=== PATIENT | female | born 2000 | race Caucasian/White ===

== ENCOUNTER 2022-01-26 16:55 | Outpatient (CLI) | payer BC, SELFPAY ==
[2022-01-26 17:15] LABS: Hematocrit 40.5 % (35.0-49.0); Hemoglobin 12.7 g/dL (12.0-15.0); Mean Corpuscular HGB Conc 31.4 g/dL (32.0-36.0); Mean Corpuscular Hemoglobin 26.1 pg (27.0-31.0); Mean Corpuscular Volume 83.2 fL (78.0-102.0); Mean Platelet Volume 9.3 fl (9.2-11.8); Platelet Count Result 450 K/mm3 (150-420); Red Blood Count 4.87 M/mm3 (4.20-5.40); Red Cell Distribution Width 14.4 % (11.6-14.4)
[2022-01-26 17:25] LABS: White Blood Count 20.6 K/mm3 (4.8-10.8)
[2022-01-26 17:42] LABS: Alanine Aminotransferase 12 U/L (14-59); Albumin Level 3.4 g/dL (3.4-5.0); Alkaline Phosphatase 103 U/L (46-116); Anion Gap 10 mmol/L (8-16); Aspartate Amino Transferase 14 U/L (15-37); Bilirubin,Total 0.3 mg/dL (0.00-1.00); Blood Urea Nitrogen 11 mg/dL (7-18); Carbon Dioxide 24 mmol/L (21-32); Chloride 103 mmol/L (98-108); Estimated Glomerular Filt Rate > 60; Glucose 79 mg/dL (70-99); Osmolality Calculated 282 mOsm/kg (285-295); Sodium 137 mmol/L (136-145); Total Protein 8.1 g/dL (6.4-8.2)
[2022-01-26 17:46] LABS: Thyroid Stimulating Hormone Reflex 1.68 u/IU/mL (0.36-3.74)
== END 2022-01-26 16:56 | disposition home or self-care (01) ==
LOC: CHSLAB 17:00
PROVIDERS: PCP Family Medicine; Visit Provider Family Medicine
DX: Z00.00 Encounter for general adult medical examination without abnormal findings (principal); E11.9 Type 2 diabetes mellitus without complications
CPT/HCPCS: 36415; 80053; 84443; 85027

== ENCOUNTER 2022-12-22 14:14 | Outpatient (CLI) | payer BC, SELFPAY ==
[2022-12-22 14:34] LABS: Hematocrit 43.1 % (35.0-49.0); Hemoglobin 13.5 g/dL (12.0-15.0); Immature Platelet Fraction Pct 1.9 % (1.0-7.0); Mean Corpuscular HGB Conc 31.3 g/dL (32.0-36.0); Mean Corpuscular Hemoglobin 25.3 pg (27.0-31.0); Mean Corpuscular Volume 80.9 fL (78.0-102.0); Mean Platelet Volume 9.1 fl (9.2-11.8); Platelet Count Result 532 K/mm3 (150-420); Red Blood Count 5.33 M/mm3 (4.20-5.40); Red Cell Distribution Width 14.7 % (11.6-14.4); White Blood Count 17.9 K/mm3 (4.8-10.8)
[2022-12-22 15:07] LABS: Alanine Aminotransferase 31 U/L (14-59); Albumin Level 3.6 g/dL (3.4-5.0); Alkaline Phosphatase 113 U/L (46-116); Anion Gap 12 mmol/L (8-16); Aspartate Amino Transferase 14 U/L (15-37); Bilirubin,Total 0.3 mg/dL (0.00-1.00); Blood Urea Nitrogen 7 mg/dL (7-18); Carbon Dioxide 27 mmol/L (21-32); Chloride 103 mmol/L (98-108); Cholesterol 174 mg/dL (0-200); Estimated Glomerular Filt Rate > 60; Glucose 86 mg/dL (70-99); HDL Direct 51 mg/dL (40-60); LDL Cholesterol Calculated 106 mg/dL (<130); Osmolality Calculated 291 mOsm/kg (285-295); Potassium 4.2 mmol/L (3.5-5.1); Sodium 142 mmol/L (136-145); Total Protein 8.1 g/dL (6.4-8.2); Triglycerides 86 mg/dL (0-150)
== END 2022-12-22 14:15 | disposition home or self-care (01) ==
LOC: CHSLAB 14:16
PROVIDERS: PCP Family Medicine; Visit Provider Family Medicine
DX: E11.9 Type 2 diabetes mellitus without complications (principal); Z00.00 Encounter for general adult medical examination without abnormal findings
CPT/HCPCS: 36415; 80053; 80061; 84443; 85027; 85055

== ENCOUNTER 2023-04-21 14:31 | Outpatient (CLI) | payer BC, SELFPAY ==
[2023-04-21 14:50] LABS: Basophils Absolute Auto 0.06 K/mm3 (0.00-0.10); Basophils Percent Auto 0.3 % (0.0-1.0); Eosinophils Absolute Auto 0.18 K/mm3 (0.02-0.50); Hematocrit 40.9 % (35.0-49.0); Hemoglobin 12.8 g/dL (12.0-15.0); Immature Granulocyte Absolute 0.11 K/mm3 (0.00-0.00); Immature Granulocyte Percent A 0.6 % (0.0-0.0); Lymphocytes Absolute Auto 3.62 K/mm3 (1.10-4.50); Mean Corpuscular HGB Conc 31.3 g/dL (32.0-36.0); Mean Corpuscular Hemoglobin 25.3 pg (27.0-31.0); Mean Platelet Volume 9.4 fl (9.2-11.8); Neutrophils Absolute Auto 13.2 K/mm3 (1.7-7.2); Neutrophils Percent Auto 73.1 % (50.0-70.0); Platelet Count Result 451 K/mm3 (150-420); Red Blood Count 5.05 M/mm3 (4.20-5.40); Red Cell Distribution Width 15.2 % (11.6-14.4); White Blood Count 18.1 K/mm3 (4.8-10.8)
[2023-04-21 15:42] LABS: Ferritin 97 ng/mL (8-252); Iron 35 ug/dL (50-170); Percent Iron Saturation 13 % (12-57)
== END 2023-04-21 14:32 | disposition home or self-care (01) ==
LOC: CHSLAB 14:35
PROVIDERS: PCP Family Medicine; Visit Provider Internal Medicine Hematology & Oncology
DX: D72.829 Elevated white blood cell count, unspecified (principal)
CPT/HCPCS: 36415; 82728; 83540; 83550; 85025

== ENCOUNTER 2023-05-22 08:47 | Outpatient (CLI) | payer BC, SELFPAY ==
[2023-05-22 09:10] LABS: Basophils Absolute Auto 0.07 K/mm3 (0.00-0.10); Basophils Percent Auto 0.5 % (0.0-1.0); Eosinophils Percent Auto 1.3 % (1.0-6.0); Hematocrit 44.8 % (35.0-49.0); Hemoglobin 14.1 g/dL (12.0-15.0); Immature Granulocyte Absolute 0.08 K/mm3 (0.00-0.00); Immature Granulocyte Percent A 0.5 % (0.0-0.0); Lymphocytes Absolute Auto 2.67 K/mm3 (1.10-4.50); Lymphocytes Percent Auto 17.7 % (18.0-42.0); Mean Corpuscular HGB Conc 31.5 g/dL (32.0-36.0); Mean Corpuscular Hemoglobin 25.5 pg (27.0-31.0); Mean Corpuscular Volume 80.9 fL (78.0-102.0); Mean Platelet Volume 9.1 fl (9.2-11.8); Monocytes Absolute Auto 0.58 K/mm3 (0.10-0.90); Monocytes Percent Auto 3.8 % (2.0-11.0); Neutrophils Absolute Auto 11.5 K/mm3 (1.7-7.2); Neutrophils Percent Auto 76.2 % (50.0-70.0); Platelet Count Result 497 K/mm3 (150-420); Red Blood Count 5.54 M/mm3 (4.20-5.40); Red Cell Distribution Width 15.2 % (11.6-14.4); White Blood Count 15.1 K/mm3 (4.8-10.8)
[2023-05-25 13:02] LABS: Cortisol Random 8.1 mcg/dL (***)
[2023-05-26 16:20] LABS: CALR Exon 9 Mutation Not Detected (Not Detected); CSF3R Exon 14/17 Mutation Not Detected (Not Detected); JAK2 Exon 12 Mutation Not Detected (Not Detected); JAK2 V617F Mutation Not Detected (Not Detected); MPL Exon 10 Mutation Not Detected (Not Detected)
== END 2023-05-22 08:48 | disposition home or self-care (01) ==
PROVIDERS: PCP Family Medicine; Visit Provider Internal Medicine Hematology & Oncology
DX: D72.829 Elevated white blood cell count, unspecified (principal)
CPT/HCPCS: 36415; 81219; 81270; 81279; 81339; 81479; 82533; 85025; 88271; 88275

== ENCOUNTER 2024-12-20 05:44 | Emergency (ER) | payer OTHER, SELFPAY ==
--- NOTE | ~2024-12-20 | CT_ITS ---
EXAMINATION: CT abdomen pelvis w con DATE: 12/20/2024 07:04 INDICATION: Right lower quadrant abdominal pain. TECHNIQUE: Computed tomography (CT) of the abdomen and pelvis was performed with 100 mL Omnipaque 350 intravenous contrast. Automated exposure control and iterative reconstruction technique were employe d. The dose-length product was 1590.34 mGy-cm. COMPARISON: None. FINDINGS: The visualized portions of the lung bases demonstrate mild atelectasis. No pleural effusion . The heart size is normal. No pericardial effusion. The liver, gallbladder, spleen, pancreas, adrena l glands, and left kidney are normal. There is a decreased right-sided contrast nephrogram. There is mild right hydronephrosis and hydroureter. There is a 4 mm stone in distal right ureter. There are no dilated loops of bowel. The appendix is normal. There are no pathologically enlarged lymph nodes. Th ere is no free intraperitoneal fluid. There is mild thoracic spondylosis. IMPRESSION: 1. 4 mm stone in distal right ureter with mild right hydronephrosis and hydroureter. Reviewed, dictated and finalized at location A. IMPRESSION: 1. 4 mm stone in distal right ureter with mild right hydronephrosis and hydrour eter.
[2024-12-20 05:46] VITALS: BP 170/111; PULSE 113; RESP 18; TEMP 36.3; O2SAT 99
--- OUTSIDE RECORDS SUMMARY | 2024-12-20 05:46 | XMS_ITS | Clinical Summary ---
Author Organization [facility] Address [address] [place] [id number] Care Team Providers Care Plugger Worker Name Role Phone Unavailable Primary Care Provider Unavailabl e Social History Tobacco Use Types Packs/Day Years Used Date Smoking Tobacco: Never Assessed Comments Unknown Sex and Gender Information Value Date Recorded Sex Assigned at Not on file Legal Sex Female 8:05 AM CDT Gender Identity Not on file Sexual Orientation Not on file Last Filed Vital Signs Vital Sign Reading Time Taken Comments Blood Pressure 118/72 10/22/2015 8:20 AM DISTRIBUTION CENTER ADMINISTRATOR Pulse 68 10/22/2015 8:20 AM DISTRIBUTION CENTER ADMINISTRATOR Temperature - - Respiratory Rate - - Oxygen Saturation - - Inhaled Oxygen Concentration - - Weight 80.9 kg (178 lb 5 oz) 10/22/2015 8:20 AM DISTRIBUTION CENTER ADMINISTRATOR Height 162.6 cm (5' 4 ) 10/22/2015 8:20 AM DISTRIBUTION CENTER ADMINISTRATOR Body Mass Index 30.61 10/22/2015 8:20 AM DISTRIBUTION CENTER ADMINISTRATOR Plan of Treatment Health Maintenance Due Date Last Done Comments Cervical Cancer Screening Pa p Smear (Age 21 to 29) Every 3 Years 1998 Cervical Cancer Screening 1998 Annual Physical 2001 HPV Vaccines (1 - 3-dose series) 2013 Hepatitis C 01/29/2016 DTaP, Tdap and Td Vaccines ( 1 - Tdap) 2017 Hepatitis B Vaccines (1 of 3 - 19+ 3-dose series) 2017 COVID-19 Vaccine (2023-2 5 season) 2024 Influenza Adult (#1) 2024 Meningococcal B Vaccine Aged Out No l onger eligible based on patient's age to complete this topic Meningococcal Vaccine Aged Out No yaima duran eligible based on patient's age to complete this topic Pneumococcal Vaccine: Pediat rics (0 to 5 Years) and At-Risk Patients (6 to 64 Years) Aged Out No longer eligible b ased on patient's age to complete this topic RSV Immunizations Under 20 Months Aged Out No longer eligible based on patient's age to complete this topic
--- NOTE | 2024-12-20 05:50 | ECG_ITS ---
Test Date: 2024-12-20 06:25:15 Measurements Intervals [place] Rate: 73 P: 31 SD: 188 QRS: 54 QRSD: 96 T: 28 QT: 392 QTc: 433 Interpretive Statements SINUS RHYTHM No previous ECG available for comparison Electronically Signed On 12-20-2024 10:34:50 CDT by Nikki Armstrong M.D.
[2024-12-20] MEDS: MORPHINE SULFATE (*CRX) 4 MG/ML INJ IV PUSH (06:09)
[2024-12-20] MEDS: SODIUM CHLORIDE 0.9% IV 1,000 ML 999 ML IV CONT (06:10)
--- NOTE | 2024-12-20 06:12 | ED_ITS ---
HPI - Abdominal Pain General Chief Complaint: Abdominal Pain <Justino Huerta MD - Last Filed: 12/20/24 06:58> Stated Complaint: Abd Pain <Justino Huerta MD - Last Filed: 12/20/24 06:58> Time Seen by Provider: 12/20/24 05:49 <Justino Huerta MD - Last Filed: 12/20/24 06:58> Source: patient <Justino Huerta MD - Last Filed: 12/20/24 06:58> Mode of arrival: ambulatory <Justino Huerta MD - Last Filed: 12/20/24 06:58> Limitations: no limitations <Justino Huerta MD - Last Filed: 12/20/24 06:58> History of Present Illness HPI narrative: this is a 24-year-old female with no significant past medical history presents with abdominal pain localizing to her right lower quadrant with mild nausea, rates her abdominal pain at 10/10 started around 1 in the morning and has been persistent since then. Patient denies any other symptoms no dysuria no hematuria no flank pain no fever chills. <Justino Huerta MD - Last Filed: 12/20/24 06:58> MD elicited complaint: abdominal pain <Justino Huerta MD - Last Filed: 12/20/24 06:58> Pertinent past history: none <Justino Huerta MD - Last Filed: 12/20/24 06:58> Onset (ago): hour(s) <Justino Huerta MD - Last Filed: 12/20/24 06:58> Pain Consistency: constant <Justino Huerta MD - Last Filed: 12/20/24 06:58> Location: RLQ <Justino Huerta MD - Last Filed: 12/20/24 06:58> Severity: severe <Justino Huerta MD - Last Filed: 12/20/24 06:58> Pain scale (0-10): 10 <Justino Huerta MD - Last Filed: 12/20/24 06:58> Quality: aching <Justino Huerta MD - Last Filed: 12/20/24 06:58> Radiation: RLQ <Justino Huerta MD - Last Filed: 12/20/24 06:58> Migration to: no migration <Justino Huerta MD - Last Filed: 12/20/24 06:58> Exacerbating factors: nothing <Justino Huerta MD - Last Filed: 12/20/24 06:58> Relieving factors: nothing <Justino Huerta MD - Last Filed: 12/20/24 06:58> Associated symptoms: nausea <Justino Huerta MD - Last Filed: 12/20/24 06:58> Related Data Allergies/Adverse Reactions: Allergies Allergy/AdvReac Type Severity Reaction Status Date / Time Penicillins Allergy Unknown unknown Verified 06/29/23 07:25 <Justino Huerta MD - Last Filed: 12/20/24 06:58> Review of Systems 2 Review of Systems: All systems reviewed & are unremarkable except as noted in HPI and below <Justino Huerta MD - Last Filed: 12/20/24 06:58> PMFSH Past Medical History Medical History: Medical History No active medical problems <Justino Huerta MD - Last Filed: 12/20/24 06:58> Surgical History Surgical History: Surgical History No history of previous surgery <Justino Huerta MD - Last Filed: 12/20/24 06:58> Family History Family History: Family History Grandparent Diabetes mellitus <Justino Huerta MD - Last Filed: 12/20/24 06:58> Social History Social History: Social History Smoking status: Never smoker Second hand tobacco smoke exposure: No Alcohol intake: never <Justino Huerta MD - Last Filed: 12/20/24 06:58> Exam 2 Const: General: healthy appearing <Justino Huerta MD - Last Filed: 12/20/24 06:58> Nutritional Appearance: well nourished <Justino Huerta MD - Last Filed: 12/20/24 06:58> Orientation/consciousness: patient oriented x3 <Justino Huerta MD - Last Filed: 12/20/24 06:58> Limitations: no limitations <Justino Huerta MD - Last Filed: 12/20/24 06:58> Neck: Neck: normal visual inspection, no lymphadenopathy and no meningeal signs <Justino Huerta MD - Last Filed: 12/20/24 06:58> Chest: Chest palpation & inspection: normal inspection of the chest < MD Leighton Payan Last Filed: 12/20/24 06:58> Resp: Effort & Inspection: normal respiratory effort <MD Leighton Payan Last Filed: 12/20/24 06:58> Auscultation: clear to auscultation bilaterally <Justino Huerta MD - Last Filed: 12/20/24 06:58> Cardio: Rate: tachycardic <MD Leighton Payan Last Filed: 12/20/24 06:58> Rhythm: regular rhythm <MD Leighton Payan Last Filed: 12/20/24 06:58> GI: GI Palp: Yes Soft to palpation and Yes Tenderness to palpation present (GI) <MD Leighton Payan Last Filed: 12/20/24 06:58> Auscultation: normal bowel sounds <MD Leighton Payan Last Filed: 12/20/24 06:58> : General: Yes bladder normal to palpation <MD Leighton Payan Last Filed: 12/20/24 06:58> Skin: General skin exam: normal color <MD Leighton Payan Last Filed: 12/20/24 06:58> Rashes: no rashes <MD Leighton Payan Last Filed: 12/20/24 06:58> Neuro: General: patient oriented x3, moves all extremities, no meningeal signs and no focal motor deficits <MD Leighton Payan Last Filed: 12/20/24 06:58> Extrem: General: normal to inspection, no clubbing, cyanosis or edema and no pedal edema <Justino Huerta MD - Last Filed: 12/20/24 06:58> Psych: Affect: Anxious affect present <Justino Huerta MD - Last Filed: 12/20/24 06:58> Course Course Emergency Course: Patient started on IV fluids, morphine 4mg IV for pain control. white count performed was at 17,000 the rest of her blood work was unremarkable CT scan of the abdomen pelvis pending. Will sign out to Dr. Arango which will be taking over care of the patient. EKG showed normal sinus rhythm. <Justino Huerta MD - Last Filed: 12/20/24 06:58> Vital Signs Vital signs: Vital Signs Temperature 36.3 C L 12/20/24 05:46 Pulse Rate 113 H 12/20/24 05:46 Respiratory Rate 18 12/20/24 05:46 Blood Pressure 170/111 H 12/20/24 05:46 Pulse Oximetry 99 12/20/24 05:46 Oxygen Delivery Room Air 12/20/24 05:46 Temperature 36.3 C L 12/20/24 05:46 Pulse Rate 113 H 12/20/24 05:46 Respiratory Rate 18 12/20/24 05:46 Blood Pressure 170/111 H 12/20/24 05:46 Pulse Oximetry 99 12/20/24 05:46 Oxygen Delivery Room Air 12/20/24 05:46 <Justino Huerta MD - Last Filed: 12/20/24 06:58> Vital Signs Temperature 36.3 C L 12/20/24 05:46 Pulse Rate 113 H 12/20/24 05:46 Respiratory Rate 18 12/20/24 05:46 Blood Pressure 170/111 H 12/20/24 05:46 Pulse Oximetry 99 12/20/24 05:46 Oxygen Delivery Room Air 12/20/24 05:46 Temperature 36.3 C L 12/20/24 05:46 Pulse Rate 113 H 12/20/24 05:46 Respiratory Rate 18 12/20/24 05:46 Blood Pressure 170/111 H 12/20/24 05:46 Pulse Oximetry 99 12/20/24 05:46 Oxygen Delivery Room Air 12/20/24 05:46 <Eron Hutton MD - Last Filed: 12/20/24 09:06> MDM - Abdominal Pain MDM Narrative Medical decision making narrative: Patient is a 24-year-old female with right lower quadrant pain. I have taken over the case at this time from shift change. I will be giving her pain management, antibiotics IV and hopeful discharge when pain is controlled. She will need to see an outpatient urologist. If pain is not controlled, we will need transfer for higher level medical care. <Eron Hutton MD - Last Filed: 12/20/24 09:06> Lab Data Attestation: I reviewed the patient's lab results. <Eron Hutton MD - Last Filed: 12/20/24 09:06> Result diagrams: 12/20/24 06:18 12/20/24 06:18 <Justino Huerta MD - Last Filed: 12/20/24 06:58> Labs: Lab Results 12/20/24 12/20/24 Range/Units 06:18 06:19 WBC 17.8 H (4.8-10.8) K/mm3 RBC 5.24 (4.20-5.40) M/mm3 Hgb 12.5 (12.0-15.0) g/dL Hct 40.7 (35.0-49.0) % MCV 77.7 L (78.0-102.0) fL MCH 23.9 L (27.0-31.0) pg MCHC 30.7 L (32-36) g/dL RDW 15.9 H (11.6-14.4) % Plt Count 483 H (150-420) K/mm3 MPV 9.3 (9.2-11.8) fl Immature Gran % (Auto) 0.4 H (0.0-0.0) % Neut % (Auto) 76.4 H (50.0-70.0) % Lymph % (Auto) 16.0 L (18.0-42.0) % [place] % (Auto) 5.7 (2.0-11.0) % Eos % (Auto) 1.2 (1.0-6.0) % Baso % (Auto) 0.3 (0.0-1.0) % Lymph # (Auto) 2.85 (1.10-4.50) K/mm3 [place] # (Auto) 1.02 H (0.10-0.90) K/mm3 Eos # (Auto) 0.22 (0.02-0.50) K/mm3 Baso # (Auto) 0.06 (0.00-0.10) K/mm3 Abs Immat Gran (auto) 0.07 H (0.00-0.00) K/mm3 Absolute Neuts (auto) 13.62 H (1.70-7.20) K/mm3 Absolute Nucleated RBC 0.00 (0.00-0.00) K/mm3 Nucleated RBC % 0.0 (0-0.0) % PT 10.5 (9.50-12.1) Seconds INR 0.9 APTT 27.3 (23.9-30.70) Sec Sodium 135 L (136-145) mmol/L Potassium 3.8 (3.5-5.1) mmol/L Chloride 101 (98-108) mmol/L Carbon Dioxide 26 (21-32) mmol/L Anion Gap 8 (4-12) mmol/L BUN 16 (7-18) mg/dL Creatinine 1.14 H (0.55-1.02) mg/dL Estim Creat Clear Calc 99 ml/min Estimated GFR 58 L (59 - ) Glucose 115 H (70-99) mg/dL Calculated Osmolality 282 L (285-295) mOsm/kg Lactic Acid 1.6 (0.4-2.0) mmol/L Calcium 8.8 (8.5-10.1) mg/dL Total Bilirubin 0.3 (0.00-1.00) mg/dL AST 12 L (15-37) U/L ALT 28 (14-59) U/L Alkaline Phosphatase 123 H (46-116) U/L C-Reactive Protein 4.3 H (0.0-0.9) mg/dL Total Protein 8.1 (6.4-8.2) g/dL Albumin 3.3 L (3.4-5.0) g/dL Lipase 30 (16-77) U/L Urine Color Yellow (Yellow) Urine Appearance Clear (Clear) Urine pH 6.0 (5.0-8.0) Ur Specific [place] >= 1.030 H (1.010-1.020) Urine Protein Trace H (Negative) Urine Glucose (UA) Negative (Negative) Urine Ketones Negative (Negative) Ur Blood (Man) 1+ H (Negative) Urine Nitrate Negative (Negative) Urine Bilirubin Negative (Negative) Urine Urobilinogen 0.2 (0.2-1.0) mg/dL Leukocyte Esterase Rfl Negative (Negative) ARLENE/UL Urine RBC 3-5 H (0-2) /hpf Urine WBC 0-3 (0-3) /hpf Ur Squamous Epith Cells Moderate H (Few) /hpf Calcium Oxalate Crystal Many H (None) /hpf Urine Bacteria Trace (None) /hpf Urine Test Negative <Justino Huerta MD - Last Filed: 12/20/24 06:58> Lab Results 12/20/24 12/20/24 Range/Units 06:18 06:19 WBC 17.8 H (4.8-10.8) K/mm3 RBC 5.24 (4.20-5.40) M/mm3 Hgb 12.5 (12.0-15.0) g/dL Hct 40.7 (35.0-49.0) % MCV 77.7 L (78.0-102.0) fL MCH 23.9 L (27.0-31.0) pg MCHC 30.7 L (32-36) g/dL RDW 15.9 H (11.6-14.4) % Plt Count 483 H (150-420) K/mm3 MPV 9.3 (9.2-11.8) fl Immature Gran % (Auto) 0.4 H (0.0-0.0) % Neut % (Auto) 76.4 H (50.0-70.0) % Lymph % (Auto) 16.0 L (18.0-42.0) % [place] % (Auto) 5.7 (2.0-11.0) % Eos % (Auto) 1.2 (1.0-6.0) % Baso % (Auto) 0.3 (0.0-1.0) % Lymph # (Auto) 2.85 (1.10-4.50) K/mm3 [place] # (Auto) 1.02 H (0.10-0.90) K/mm3 Eos # (Auto) 0.22 (0.02-0.50) K/mm3 Baso # (Auto) 0.06 (0.00-0.10) K/mm3 Abs Immat Gran (auto) 0.07 H (0.00-0.00) K/mm3 Absolute Neuts (auto) 13.62 H (1.70-7.20) K/mm3 Absolute Nucleated RBC 0.00 (0.00-0.00) K/mm3 Nucleated RBC % 0.0 (0-0.0) % PT 10.5 (9.50-12.1) Seconds INR 0.9 APTT 27.3 (23.9-30.70) Sec Sodium 135 L (136-145) mmol/L Potassium 3.8 (3.5-5.1) mmol/L Chloride 101 (98-108) mmol/L Carbon Dioxide 26 (21-32) mmol/L Anion Gap 8 (4-12) mmol/L BUN 16 (7-18) mg/dL Creatinine 1.14 H (0.55-1.02) mg/dL Estim Creat Clear Calc 99 ml/min Estimated GFR 58 L (59 - ) Glucose 115 H (70-99) mg/dL Calculated Osmolality 282 L (285-295) mOsm/kg Lactic Acid 1.6 (0.4-2.0) mmol/L Calcium 8.8 (8.5-10.1) mg/dL Total Bilirubin 0.3 (0.00-1.00) mg/dL AST 12 L (15-37) U/L ALT 28 (14-59) U/L Alkaline Phosphatase 123 H (46-116) U/L C-Reactive Protein 4.3 H (0.0-0.9) mg/dL Total Protein 8.1 (6.4-8.2) g/dL Albumin 3.3 L (3.4-5.0) g/dL Lipase 30 (16-77) U/L Urine Color Yellow (Yellow) Urine Appearance Clear (Clear) Urine pH 6.0 (5.0-8.0) Ur Specific [place] >= 1.030 H (1.010-1.020) Urine Protein Trace H (Negative) Urine Glucose (UA) Negative (Negative) Urine Ketones Negative (Negative) Ur Blood (Man) 1+ H (Negative) Urine Nitrate Negative (Negative) Urine Bilirubin Negative (Negative) Urine Urobilinogen 0.2 (0.2-1.0) mg/dL Leukocyte Esterase Rfl Negative (Negative) ARLENE/UL Urine RBC 3-5 H (0-2) /hpf Urine WBC 0-3 (0-3) /hpf Ur Squamous Epith Cells Moderate H (Few) /hpf Calcium Oxalate Crystal Many H (None) /hpf Urine Bacteria Trace (None) /hpf Urine Test Negative <Eron Hutton MD - Last Filed: 12/20/24 09:06> Imaging Data Attestation: I personally reviewed and interpreted this imaging study as follows: <Eron Hutton MD - Last Filed: 12/20/24 09:06> Radiologist's impression: ITS Impressions Abdomen/Pelvis CT 12/20/24 07:05 IMPRESSION: 1. 4 mm stone in distal right ureter with mild right hydronephrosis and hydroureter. <Justino Huerta MD - Last Filed: 12/20/24 06:58> ITS Impressions Abdomen/Pelvis CT 12/20/24 07:05 IMPRESSION: 1. 4 mm stone in distal right ureter with mild right hydronephrosis and hydroureter. <Eron Hutton MD - Last Filed: 12/20/24 09:06> Critical Care Time Critical Care Time Critical Care Time: No <Justino Huerta MD - Last Filed: 12/20/24 06:58> Discharge Plan Discharge Clinical Impression: Right nephrolithiasis <Justino Huerta MD - Last Filed: 12/20/24 06:58> Patient Disposition: Home, Self-Care <Justino Huerta MD - Last Filed: 12/20/24 06:58> Condition: Stable <Justino Huerta MD - Last Filed: 12/20/24 06:58> Instructions: Antibiotic Form, Kidney Stones (ED) <Justino Huerta MD - Last Filed: 12/20/24 06:58> Additional Instructions: Please follow-up with primary doctor in the next week. Please see a urologist as soon as possible in the next week. You may get a referral from your primary doctor. Come back to the ER for worse pain. Please have the primary doctor recheck your CBC and CRP. <Justino Huerta MD - Last Filed: 12/20/24 06:58> Patient Language: [place] <Justino Huerta MD - Last Filed: 12/20/24 06:58> Prescriptions: New levofloxacin 500 mg tablet 500 mg PO DAILY 7 Days Qty: 7 0RF methylprednisolone [Medrol] 4 mg tablet 4 mg PO TID 3 Days Qty: 9 0RF tamsulosin [Flomax] 0.4 mg capsule 0.4 mg PO DAILY Qty: 30 0RF ondansetron 4 mg tablet,disintegrating 4 mg PO Q8H Qty: 20 0RF hydrocodone-acetaminophen 5-325 mg tablet 1 tablet PO Q8H PRN (Reason: pain) Qty: 20 0RF Rx Instructions: 1-2 tabs per dose <Justino Huerta MD - Last Filed: 12/20/24 06:58> Follow-up/Referrals: Eliecer Parry DO [Primary Care Provider] - <Justino Huerta MD - Last Filed: 12/20/24 06:58> Time of Disposition: 07:24 <Justino Huerta MD - Last Filed: 12/20/24 06:58> 07:24 <Eron Hutton MD - Last Filed: 12/20/24 09:06>
--- OUTSIDE RECORDS SUMMARY | 2024-12-20 06:15 | XMS_ITS | Clinical Summary ---
Author Organization [facility] Address [address] [place] [address] Care Team Providers Care Client Solutions Director Name Role Phone Unavailable Primary Care Provider [...] Comments Blood Pressure 118/72 10/22/2015 8:20 AM TOP CLOSER Pulse 68 10/22/2015 8:20 AM TOP CLOSER Temperature - - Respiratory Rate - - Oxygen Saturation - - Inhaled Oxygen Concentration - - Weight 80.9 kg (178 lb 5 oz) 10/22/2015 8:20 AM TOP CLOSER Height 162.6 cm (5' 4 ) 10/22/2015 8:20 AM TOP CLOSER Body Mass Index 30.61 10/22/2015 8:20 AM TOP CLOSER Plan of Treatment Health Maintenance Due Date [...]
[2024-12-20 06:21] LABS: Basophils Absolute Auto 0.06 K/mm3 (0.00-0.10); Basophils Percent Auto 0.3 % (0.0-1.0); Eosinophils Absolute Auto 0.22 K/mm3 (0.02-0.50); Eosinophils Percent Auto 1.2 % (1.0-6.0); Hematocrit 40.7 % (35.0-49.0); Hemoglobin 12.5 g/dL (12.0-15.0); Immature Granulocyte Absolute 0.07 K/mm3 (0.00-0.00); Immature Granulocyte Percent A 0.4 % (0.0-0.0); Lymphocytes Absolute Auto 2.85 K/mm3 (1.10-4.50); Mean Corpuscular HGB Conc 30.7 g/dL (32-36); Mean Corpuscular Hemoglobin 23.9 pg (27.0-31.0); Mean Corpuscular Volume 77.7 fL (78.0-102.0); Mean Platelet Volume 9.3 fl (9.2-11.8); Monocytes Absolute Auto 1.02 K/mm3 (0.10-0.90); Monocytes Percent Auto 5.7 % (2.0-11.0); Neutrophils Absolute Auto 13.62 K/mm3 (1.70-7.20); Neutrophils Percent Auto 76.4 % (50.0-70.0); Platelet Count Result 483 K/mm3 (150-420); Red Blood Count 5.24 M/mm3 (4.20-5.40); Red Cell Distribution Width 15.9 % (11.6-14.4); White Blood Count 17.8 K/mm3 (4.8-10.8)
[2024-12-20 06:22] LABS: Add Urine Microscopic? YES; Appearance Urine Clear (Clear); Bilirubin Urine Negative (Negative); Blood Urine 1+ (Negative); Color Urine Yellow (Yellow); Glucose Urine UA Negative (Negative); Ketones Urine Negative (Negative); Leukocyte Esterase Ur Negative LEU/UL (Negative); Nitrate Urine Negative (Negative); Protein Urine Trace (Negative); Specific Grav Ur >= 1.030 (1.010-1.020); Urobilinogen Urine 0.2 mg/dL (0.2-1.0)
[2024-12-20 06:26] LABS: WBC Urine 0-3 /hpf (0-3)
[2024-12-20 06:27] LABS: Bacteria Urine Trace /hpf; Calcium Oxalate Crystals Urine Many /hpf; Squamous Epithelial Cell Urine Moderate /hpf (Few)
[2024-12-20 06:27] LABS: Pregnancy On Board Control Positive; Urine Pregnancy Test Negative
[2024-12-20 06:33] LABS: INR 0.9; Partial Thromboplastin Time 27.3 Sec (23.9-30.70); Prothrombin Time 10.5 Seconds (9.50-12.1)
[2024-12-20 06:34] LABS: Alanine Aminotransferase 28 U/L (14-59); Albumin Level 3.3 g/dL (3.4-5.0); Alkaline Phosphatase 123 U/L (46-116); Anion Gap 8 mmol/L (4-12); Aspartate Amino Transferase 12 U/L (15-37); Bilirubin,Total 0.3 mg/dL (0.00-1.00); Blood Urea Nitrogen 16 mg/dL (7-18); CRP 4.3 mg/dL (0.0-0.9); Calcium 8.8 mg/dL (8.5-10.1); Carbon Dioxide 26 mmol/L (21-32); Chloride 101 mmol/L (98-108); Estimated CRCL calculation 99 ml/min; Estimated Glomerular Filt Rate 58; Glucose 115 mg/dL (70-99); Lipase 30 U/L (16-77); Osmolality Calculated 282 mOsm/kg (285-295); Potassium 3.8 mmol/L (3.5-5.1); Sodium 135 mmol/L (136-145); Total Protein 8.1 g/dL (6.4-8.2)
[2024-12-20 07:01] LABS: Lactic Acid Reflex 1.6 mmol/L (0.4-2.0)
[2024-12-20] MEDS: HYDROmorphone HCL INJ (*CRX) 2 MG/ML VIAL 0.5 MG IV PUSH (07:19)
[2024-12-20] MEDS: levoFLOXacin 500 MG/D5W 100 ML 500 MG/100 ML BAG 100 MG IVPB (07:19)
[2024-12-20] MEDS: TAMSULOSIN HCL 0.4 MG CAPSULE PO (07:28)
[2024-12-20] MEDS: ONDANSETRON INJ 4 MG/2 ML VIAL IV PUSH (07:28)
[2024-12-20 09:17] VITALS: BP 159/108; PULSE 86; RESP 20; TEMP 36.7; O2SAT 96
--- NOTE | 2024-12-22 12:46 | PC.NURSE ---
Preliminary blood culture; no growth to date.
== END 2024-12-20 09:19 | disposition home or self-care (01) ==
PROVIDERS: Emergency Medicine; Emergency Provider Emergency Medicine; PCP Family Medicine
DX: N20.0 Calculus of kidney (principal)
CPT/HCPCS: 36415; 74177; 80053; 81001; 81025; 83605; 83690; 85025; 85610; 85730; 86140; 87040; 93005; 96361; 96365; 96375; 99284; A9270; J1171; J1956; J2270; J2405; J7030; Q9967

== ENCOUNTER 2024-12-30 16:32 | Outpatient (CLI) | payer OTHER, SELFPAY ==
[2024-12-30 17:17] LABS: Alanine Aminotransferase 29 U/L (14-59); Albumin Level 3.5 g/dL (3.4-5.0); Alkaline Phosphatase 129 U/L (46-116); Anion Gap 10 mmol/L (4-12); Aspartate Amino Transferase 11 U/L (15-37); Bilirubin,Total 0.4 mg/dL (0.00-1.00); Blood Urea Nitrogen 16 mg/dL (7-18); Calcium 9.5 mg/dL (8.5-10.1); Carbon Dioxide 26 mmol/L (21-32); Chloride 102 mmol/L (98-108); Estimated Glomerular Filt Rate > 60; Glucose 89 mg/dL (70-99); Osmolality Calculated 286 mOsm/kg (285-295); Potassium 4.3 mmol/L (3.5-5.1); Sodium 138 mmol/L (136-145); Total Protein 8.1 g/dL (6.4-8.2)
--- OUTSIDE RECORDS SUMMARY | 2024-12-30 18:04 | XMS_ITS | Clinical Summary ---
Author Organization [facility] Address [address] [place] [id number] Care Team Providers Care Sales Agent Food Vending Service Name Role Phone Unavailable Primary Care Provider [...] Comments Blood Pressure 118/72 10/22/2015 8:20 AM CONSTRUCTION SITE MANAGER Pulse 68 10/22/2015 8:20 AM CONSTRUCTION SITE MANAGER Temperature - - Respiratory Rate - - Oxygen Saturation - - Inhaled Oxygen Concentration - - Weight 80.9 kg (178 lb 5 oz) 10/22/2015 8:20 AM CONSTRUCTION SITE MANAGER Height 162.6 cm (5' 4 ) 10/22/2015 8:20 AM CONSTRUCTION SITE MANAGER Body Mass Index 30.61 10/22/2015 8:20 AM CONSTRUCTION SITE MANAGER Plan of Treatment Health Maintenance Due Date [...] 2017 COVID-19 Vaccine (2023-2 5 season) 2024 Meningococcal B Vaccine Aged Out No [...]
== END 2024-12-30 16:33 | disposition home or self-care (01) ==
LOC: CHSLAB 16:33
PROVIDERS: PCP Nurse Practitioner Family; Visit Provider Nurse Practitioner Family
DX: Z00.00 Encounter for general adult medical examination without abnormal findings (principal)
CPT/HCPCS: 36415; 80053